=== PATIENT | female | born 1995 | race Caucasian/White ===

== ENCOUNTER → 2016-06-24 | Outpatient (CLI) | payer OTHER ==
[~2016-06-24] MED LIST: METHADONE PO; MTHL PO; PRENTAB26 PO; ZFR4 PO
[2016-06-24 16:07] LABS: URINE APPEARANCE CLEAR (CLEAR); URINE BILIRUBIN NEG (NEG); URINE COLOR YELLOW; URINE EPITHELIAL CELL AUTO >30 /lpf (0-5); URINE NITRITE NEG (NEG); URINE PH 7.5 (4.5-7.5); URINE SPECIFIC GRAVITY 1.011 (1.000-1.030); UROBILINOGEN NEG (NEG)
[2016-06-24 16:09] LABS: MANUAL MICROSCOPIC REQUIRED? NO; REVIEW REQ? NO
[2016-06-24 17:01] LABS: GTGD 50 Grams
== END | disposition home or self-care (01) ==
LOC: C.LAB1850 14:04
PROVIDERS: ATTEND Obstetrics & Gynecology
DX: Z34.83 Encounter for supervision of other normal pregnancy, third trimester (principal)

== ENCOUNTER 2016-08-24 21:01 | Outpatient (CLI) | payer OTHER ==
[~2016-08-24] VITALS: Ht 167.6 cm; Wt 76.2 kg
[~2016-08-24 21:01] MED LIST changes: -MTHL PO; +ONDANSETRON 4 MG TAB PO SCH; -PRENTAB26 PO; -ZFR4 PO
[2016-08-24 21:38] LABS: BASO % 0.1 %; BASO ABS # 0.01 K/uL (0-0.2); EOS % 0.2 %; HEMATOCRIT 35.3 % (37-47); IG% 0.1 %; LYMPH ABS # 1.13 K/uL (1.2-3.4); MEAN CELL VOLUME 83.1 fL (80-100); MEAN CORPUSCULAR HEMOGLOBIN 27.8 pg (25-34); MEAN PLATELET VOLUME 10.5 fL (7.4-10.4); MONO % 7.3 %; NEUT % 78.3 %; PLATELET COUNT 162 K/uL (130-400); RED BLOOD COUNT 4.25 M/uL (4.2-5.4); WHITE BLOOD COUNT 8.07 K/uL (4.8-10.8)
[2016-08-24 21:41] LABS: COMPLETE YES; MEAN CORPUSCULAR HGB CONC 33.4 g/dl (32-36)
[2016-08-24] MEDS ORDERED: ONDANSETRON 4 MG TAB PO PRN ×2 (21:45→22:45)
[2016-08-24] MEDS ORDERED: ZFR4 PO ×2 (21:47)
[2016-08-24 21:54] LABS: URINE APPEARANCE CLEAR (CLEAR); URINE BILIRUBIN NEG (NEG); URINE COLOR YELLOW; URINE NITRITE NEG (NEG); URINE SPECIFIC GRAVITY 1.005 (1.000-1.030); UROBILINOGEN NEG (NEG); ZZUR CULT IF INDIC CLEAN CATCH NO
[2016-08-24 21:57] LABS: MANUAL MICROSCOPIC REQUIRED? NO; REVIEW REQ? YES
[2016-08-24 22:02] LABS: URINE EPITHELIAL CELL AUTO >30 /lpf (0-5)
[2016-08-24 22:05] LABS: ALB/GLOB RATIO 0.8 (0.9-2); ALKALINE PHOSPHATASE 140 U/L (45-117); ALT/SGPT 18 U/L (12-78); AST/SGOT 17 U/L (15-37); BLOOD UREA NITROGEN 7 mg/dl (7-18); BUN/CREATININE RATIO 11.3 (10-20); CARBON DIOXIDE 23 mmol/L (21-32); CHLORIDE 107 mmol/L (98-107); CREATININE 0.61 mg/dl (0.60-1.20); GLUCOSE 75 mg/dl (70-99); POTASSIUM 3.6 mmol/L (3.5-5.1); SODIUM 140 mmol/L (136-145)
[2016-08-24 22:06] VITALS: Ht 167.6 cm; Wt 76.2 kg
[2016-08-24 22:34] LABS: CALCIUM 8.5 mg/dl (8.5-10.1)
[2016-08-24 22:34] LABS: BENZODIAZEPINE, URINE NEG (NEG); COCAINE,URINE NEG (NEG); PHENCYCLIDINE, URINE NEG (NEG)
--- NOTE | 2016-08-24 22:42 | Discharge Instructions ---
Discharge Instructions Date of Service August 24, 2016. Admission Reason for Admission: Nausea, Vomiting Discharge Discharge Diagnosis / Problem: same Discharge Goals Goal(s): Continuing OB care Activity Recommendations Activity Limitations: per Instructions/Follow-up section . Instructions / Follow-Up Instructions / Follow-Up SPECIAL CARE INSTRUCTIONS: Call Doctor if: * Regular contractions every 5 minutes or greater than 12 contractions in one hour. * Bleeding * Water breaks or is leaking * Decreased movement * Fever >100.4 degrees F * Pain not relieved by routine measures or pain medication ordered. FOLLOW UP VISIT: Appointment in the office tomorrow. Current Hospital Diet Patient's current hospital diet: Clear Liquid Diet Discharge Diet Recommended Diet: Regular OB Diet Pending Studies Studies pending at discharge: no Medical Emergencies . Who to Call and When: Medical Emergencies: If at any time you feel your situation is an emergency, please call 911 immediately. . Non-Emergent Contact Non-Emergency issues call your: Primary Care Provider, Industrial Real Estate Agent . . "Provider Documentation" section prepared by Sana Burciaga. . VTE Core Measure Inpt VTE Proph given/why not?: Treatment not indicated
[2016-08-28 05:48] LABS: METHADONE METABOLITE 548 NG/ML (CUTOFF=100); METHADONE VERIFIC 256 NG/ML (CUTOFF=100)
== END 2016-08-24 23:08 | disposition home or self-care (01) ==
LOC: C.LD 21:01 → C.OPB 21:01
PROVIDERS: ATTEND Obstetrics & Gynecology
DX: O21.9 Vomiting of pregnancy, unspecified (principal); Z3A.37 37 weeks gestation of pregnancy

== ENCOUNTER 2016-08-26 19:40 | Outpatient (CLI) | payer OTHER ==
[~2016-08-26] VITALS: Ht 167.6 cm; Wt 75.9 kg
[~2016-08-26 19:40] MED LIST changes: -ONDANSETRON 4 MG TAB PO SCH; +ZFR4 PO
[2016-08-26 20:12] VITALS: Ht 167.6 cm; Wt 75.9 kg
[2016-08-26] MEDS ORDERED: PRENTAB26 PO (20:16)
== END 2016-08-26 20:35 | disposition home or self-care (01) ==
LOC: C.OPB 19:40 → C.LD 19:40 → C.OPB 20:35
PROVIDERS: ATTEND Obstetrics & Gynecology
DX: O36.8130 Decreased fetal movements, third trimester, not applicable or unspecified (principal); Z3A.37 37 weeks gestation of pregnancy

== ENCOUNTER 2016-09-05 10:48 | Inpatient (IN) | payer OTHER ==
[~2016-09-05] VITALS: Ht 165.1 cm; Wt 78.0 kg
[~2016-09-05 10:48] MED LIST changes: +PRENTAB26 PO; -ZFR4 PO
[2016-09-05 11:40] VITALS: BMI 28.6
[2016-09-05 12:27] LABS: BENZODIAZEPINE, URINE NEG (NEG); COCAINE,URINE NEG (NEG); PHENCYCLIDINE, URINE NEG (NEG)
[2016-09-05] MEDS ORDERED: LACTATED RINGER'S 1000ML 1,000 ML IV PRN (13:43)
[2016-09-05] MEDS ORDERED: LACTATED RINGER'S 1000ML 1,000 ML IV SCH ×2 (13:43→20:36)
[2016-09-05] MEDS ORDERED: IV FLUIDS COMPLETED PRN (14:00)
[2016-09-05 14:12] LABS: HEMATOCRIT 37.1 % (37-47); MEAN CELL VOLUME 82.3 fL (80-100); MEAN CORPUSCULAR HEMOGLOBIN 27.5 pg (25-34); MEAN CORPUSCULAR HGB CONC 33.4 g/dl (32-36); MEAN PLATELET VOLUME 10.4 fL (7.4-10.4); PLATELET COUNT 172 K/uL (130-400); RED BLOOD COUNT 4.51 M/uL (4.2-5.4); WHITE BLOOD COUNT 10.25 K/uL (4.8-10.8)
[2016-09-05 14:30] VITALS: Ht 165.1 cm; Wt 78.0 kg
[2016-09-05] MEDS ORDERED: FENTANYL 2MCG/ML ROPIV 1.25MG/ML 100ML BAG EPI ONE (14:52)
[2016-09-05] MEDS ORDERED: BUPIVACAINE 0.25% 30 ML VIAL ONE (14:52)
[2016-09-05] MEDS ORDERED: EpHEDrine SULFATE INJ 50 MG/ML AMP ONE (14:52)
[2016-09-05] MEDS ORDERED: FENTANYL CITRATE INJ 50 MCG/1 ML 2 ML VIAL ONE (14:52)
[2016-09-05] MEDS ORDERED: LACTATED RINGER'S 1000ML 500 ML IV PRN (16:09)
[2016-09-05] MEDS ORDERED: NALOXONE HCL INJ 1 MG in SODIUM CHLORIDE 0.9% 1000ML 1,000 ML IV PRN (16:09)
[2016-09-05] MEDS ORDERED: FENTANYL 2MCG/ML ROPIV 1.25MG/ML 100ML BAG EPI PRN (16:15)
[2016-09-05] MEDS ORDERED: NALOXONE HCL INJ 0.4 MG/1 ML VIAL/CARP IV PRN (16:15)
[2016-09-05] MEDS ORDERED: ONDANSETRON INJ 2 MG/ML 2 ML VIAL IV PRN (16:15)
[2016-09-05] MEDS ORDERED: DiphenhydrAMINE HCL 50 MG/ML VIAL IV PRN (16:15)
[2016-09-05] MEDS ORDERED: NALBUPHINE HCL INJ 10 MG/ML AMP IV PRN (16:15)
[2016-09-05] MEDS ORDERED: EpHEDrine SULFATE INJ 50 MG/ML AMP IV PRN (16:15)
[2016-09-05] MEDS ORDERED: OXYTOCIN 30 UNITS/500ML NSS IV ONE (20:31)
[2016-09-05] MEDS ORDERED: DIPHTHERIA/TETANUS/PERTUSSIS 0.5 ML SYR/VIAL IM. ONE (20:45)
[2016-09-05] MEDS ORDERED: LANOLIN OINT EXT PRN ×2 (20:45)
[2016-09-05] MEDS ORDERED: OXYTOCIN 30 UNITS/500ML NSS IV PRN (20:45)
[2016-09-05] MEDS ORDERED: SUPERCREAM 0.870 % 15GM JAR EXT PRN (20:45)
[2016-09-05] MEDS ORDERED: BENZOCAINE 20% AER SPR 82.5 GM CAN EXT PRN (20:45)
[2016-09-05] MEDS ORDERED: HYDROCORTISONE ACETATE 25 MG SUPP PR PRN (20:45)
[2016-09-05] MEDS ORDERED: ACETAMINOPHEN 325 MG TAB PO PRN (20:45)
[2016-09-05] MEDS ORDERED: ACETAMINOPHEN/CODEINE 300/30MG TAB PO PRN ×2 (20:45)
--- NOTE | 2016-09-05 21:11 | Anesthesia Procedure Note ---
Anesthesia Epidural Removal Nt Date & Time September 05, 2016 at 21:11 Vital Signs Pain Intensity: 0.0 Notes Mental Status: alert / awake / arousable, participated in evaluation Nausea / Vomiting: adequately controlled Pain: adequately controlled Airway Patency, RR, SpO2: stable & adequate BP & HR: stable & adequate Hydration State: stable & adequate Neuraxial Anesthesia: was administered Anesthetic Complications: no major complications apparent, pt satisfied with anesthetic care Epidural: removed without complications, with tip intact
--- NOTE | 2016-09-05 22:05 | DELIVERY SUMMARY ---
DATE OF OPERATION: 09/05/2016 VAGINAL DELIVERY NOTE PREOPERATIVE DIAGNOSES: 1. Joseph intrauterine at term. 2. Onset of labor. 3. Prior section. 4. Desires feedback. POSTOPERATIVE DIAGNOSIS: Same. PROCEDURE: Spontaneous vaginal after prior . SURGEON: Dr. Piña. SECURITIES VAULT SUPERVISOR: None. ESTIMATED BLOOD LOSS: 300 mL. FINDINGS: Placenta spontaneous and intact with a 3-vessel cord. No lacerations requiring repair. COMPLICATIONS: None. DISPOSITION: Stable in labor and delivery. DESCRIPTION OF THE PROCEDURE: Opal Cage is a 21-year-old who arrived in normal active labor. She was managed expectantly with the augmentation only of artificial rupture of membranes. She was provided with epidural for pain management. She did reach complete dilation with an urge to push and pushed very well. She delivered the head of her infant in the JAMIE position followed by both shoulders and the remainders of the infant's body with no difficulty. The male infant was placed on the maternal abdomen with the cord was doubly clamped and cut by the grandmother and aunt of the baby. The placenta delivered spontaneously and was noted to be intact with a 3-vessel cord. There were no lacerations of the cervix, vagina or perineum requiring repair. The patient's fundus was firm, well contracted and lochia was minimal and mother and were in stable condition following the delivery. I attest to the content of the Intraoperative Record and any orders documented therein. Any exceptio ns are noted below.
[2016-09-05 23:50] VITALS: BP 113/66; PULSE 51; TEMP 36.8
[2016-09-06] VITALS (7 sets, daily range): BP systolic 109–137; BP diastolic 63–86; PULSE 54–88; TEMP 36.4–36.6; O2SAT 99–100
[2016-09-06] MEDS: IBUPROFEN 600 MG TAB PO PRN ×4 (00:18→22:26)
[2016-09-06 06:36] LABS: HEMATOCRIT 29.8 % (37-47)
--- NOTE | 2016-09-06 06:44 | Progress Note ---
Subjective September 06, 2016. Subjective conversation w/ patient, physical exam, lab review Ambulation: ambulating normally Voiding: no voiding problems Passing Gas: Yes Diet Tolerance: Regular Diet Lochia: Moderate Feeding Type: Bottle Feeding Pain: improves with med Comment: Patient was seen at the bedside. No acute event overnight. Review of Systems Constitutional: No fever Respiratory: No cough, No shortness of breath Cardiac: No chest pain Breast: No breast lump Abdomen: No nausea, No pain, No vomiting Female : No dysuria Denies headache Objective Vital Signs Date Time Temp Pulse Resp B/P Pulse Ox O2 Delivery O2 Flow Rate FiO2 09/06/16 05:00 36.6 84 20 119/63 Room Air 09/05/16 23:50 36.8 51 20 113/66 Room Air 09/05/16 23:50 Room Air Physical Exam General Appearance: WELL-APPEARING, WD/WN, NO APPARENT DISTRESS Respiratory/Chest: chest non-tender, lungs clear, normal breath sounds, no respiratory distress Cardiovascular: regular rate, rhythm Abdomen: normal bowel sounds, non tender, soft Fundus: Firm, Relation to Umbilicus (about 1-2cm below U) Extremities: non-tender, no pedal edema, no calf tenderness Laboratory Results Last 24 Hours Test 09/05/16 11:09 09/05/16 11:36 09/05/16 14:05 09/06/16 06:21 Urine Opiates Screen NEG Urine Methadone, Qualitative POS Urine Barbiturates NEG Urine Phencyclidine (PCP) Level NEG Ur Amphetamine/Methamphetamine NEG MDMA (Ecstasy) Screen NEG Urine Benzodiazepines Screen NEG Urine Cocaine Metabolite NEG Urine Marijuana (THC) NEG Amniotic Fluid Protein NEG White Blood Count 10.25 K/uL Red Blood Count 4.51 M/uL Hemoglobin 12.4 g/dL 10.0 g/dL Hematocrit 37.1 % 29.8 % Mean Corpuscular Volume 82.3 fL Mean Corpuscular Hemoglobin 27.5 pg Mean Corpuscular Hemoglobin Concent 33.4 g/dl RDW Standard Deviation 39.1 fL RDW Coefficient of Variation 12.9 % Platelet Count 172 K/uL Mean Platelet Volume 10.4 fL Medications Current Inpatient Medications Medications (Trade) Dose Ordered Sig/Lalitha Route Start Time Stop Time Status Last Admin Dose Admin Lactated Ringer's 1,000 ml @ 125 mls/hr Q8H IV 09/05/16 13:43 09/07/16 13:42 Lactated Ringer's (Lr 1000ml) 1,000 ml @ 999 mls/hr Q1H1M PRN IV 09/05/16 13:43 10/05/16 13:42 09/05/16 15:01 999 MLS/HR Miscellaneous (Iv Fluids Completed) 1 ea PRN PRN N/A 09/05/16 14:00 09/05/17 13:59 Fentanyl/ Ropivacaine (Fentanyl 2MCG/ Ml/Ropivacaine 1.25MG/ML) 100 ml PRN PRN EPI 09/05/16 16:15 09/06/16 16:14 09/05/16 18:57 100 ML Naloxone HCl 0.1 mg 0.1 mg UD PRN IV 09/05/16 16:15 09/06/16 16:14 Lactated Ringer's (Lr 1000ml) 500 ml @ 999 mls/hr Q31M PRN IV 09/05/16 16:09 09/06/16 16:08 Ephedrine Sulfate (EpHEDrine SULFATE INJ) 10 mg Q5M PRN IV 09/05/16 16:15 09/06/16 16:14 Diphenhydramine HCl (Benadryl Inj) 25 mg Q6H PRN IV 09/05/16 16:15 09/06/16 16:14 Nalbuphine HCl 5 mg 5 mg Q10M PRN IV 09/05/16 16:15 09/06/16 16:14 Naloxone HCl/ Sodium Chloride (Narcan Inj/Nss 1000ml) 1,002.5 ml @ 50 mls/hr Q20H3M PRN IV 09/05/16 16:09 09/06/16 16:08 Ondansetron HCl 4 mg 4 mg Q6H PRN IV 09/05/16 16:15 09/06/16 16:14 Lactated Ringer's (Lr 1000ml) 1,000 ml @ 125 mls/hr Q8H IV 09/05/16 20:36 10/05/16 20:35 Oxytocin (Pitocin IV) 30 units UD PRN IV 09/05/16 20:45 10/05/16 20:44 Benzocaine (Dermoplast Aero Spr) 1 appln PRN PRN EXT 09/05/16 20:45 10/05/16 20:44 Cocaine HCl (Supercream 0.870% Cr) BID PRN EXT 09/05/16 20:45 09/19/16 20:44 Hydrocortisone Acetate (Anusol Hc Supp) 25 mg BID PRN [place] 09/05/16 20:45 10/05/16 20:44 Lanolin (Lanolin Oint) PRN PRN EXT 09/05/16 20:45 10/05/16 20:44 Prenat Multivit/ [place]/Iron/Folic Ac ( Vitamin Tab) 1 tab DAILY PO 09/06/16 08:00 10/06/16 07:59 Ibuprofen (Motrin Tab) 600 mg Q4H PRN PO 09/05/16 20:45 10/05/16 20:44 09/06/16 00:18 600 MG Acetaminophen (Tylenol Tab) 650 mg Q6H PRN PO 09/05/16 20:45 10/05/16 20:44 Acetaminophen/ Codeine Phosphate (Tylenol w/ Codeine #3 Tab) 1 tab Q4H PRN PO 09/05/16 20:45 10/05/16 20:44 Acetaminophen/ Codeine Phosphate (Tylenol w/ Codeine #3 Tab) 2 tab Q4H PRN PO 09/05/16 20:45 10/05/16 20:44 Docusate Sodium (coLACE CAP) 100 mg BID PO 09/06/16 08:00 10/06/16 07:59 Assessment and Plan Post- Day#: 1 Continue Routine Care: A/P: This is a 21 y/o female, , s/p normal vaginal delivery. She is ambulating and clinically stable. Plan: - Vitals signs are reviewed and WNL (Tmax 36.8 ) - Last Hgb is 10 - Blood type B+, GBS neg - Routine care - Encourage ambulation, monitor and control pain with medication as needed , continue with regular diet as tolerated and monitor lochia - Stool softeners and sitz bath recommended - Encourage breast feeding and educate about breast feeding Resident Physician Supervision Note: I interviewed and examined the patient. Discussed with Dr. Castellanos and agree with findings and plan as documented in the note. Any exceptions or clarifications are listed here: [None] Documented By: Kendra Piña
[2016-09-06] MEDS: PRENATAL VITAMIN TAB PO SCH (08:36)
[2016-09-06] MEDS: DOCUSATE SODIUM 100 MG CAP PO SCH ×2 (08:37→19:59)
[2016-09-06] MEDS ORDERED: MTHL PO (08:38)
[2016-09-06] MEDS: METHADONE ORAL SOLN 2 MG/1ML PO SCH (09:23)
[2016-09-07] MEDS: IBUPROFEN 600 MG TAB PO PRN ×2 (05:56→16:00)
--- NOTE | 2016-09-07 07:05 | Progress Note ---
Subjective September 07, 2016. Subjective conversation w/ patient, physical exam, lab review Ambulation: ambulating normally Voiding: no voiding problems Passing Gas: Yes Diet Tolerance: Regular Diet Lochia: Moderate Feeding Type: Bottle Feeding Pain: denies pain Comment: Patient was seen at the bedside. No acute event overnight. Review of Systems Constitutional: No fever Respiratory: No cough, No shortness of breath Cardiac: No chest pain Breast: No breast lump Abdomen: No nausea, No pain, No vomiting Female : No dysuria, No urinary frequency Denies headache Objective Vital Signs Date Time Temp Pulse Resp B/P Pulse Ox O2 Delivery O2 Flow Rate FiO2 09/06/16 23:15 99 Room Air 09/06/16 23:15 36.4 60 18 117/69 99 Room Air 09/06/16 19:30 36.6 77 18 137/86 Room Air 09/06/16 15:55 Room Air 09/06/16 15:55 36.6 54 16 120/73 Room Air 09/06/16 11:55 36.5 74 18 122/77 100 Room Air 09/06/16 09:15 99 Room Air 09/06/16 09:02 36.6 88 17 109/68 99 Room Air 09/06/16 08:15 Room Air Physical Exam General Appearance: WELL-APPEARING, WD/WN, NO APPARENT DISTRESS Respiratory/Chest: chest non-tender, lungs clear, normal breath sounds, no respiratory distress Cardiovascular: regular rate, rhythm Abdomen: normal bowel sounds, non tender, soft Fundus: Firm, Non-Tender, Relation to Umbilicus (about 3cm below U) Extremities: non-tender, no pedal edema, no calf tenderness Medications Current Inpatient Medications Medications (Trade) Dose Ordered Sig/Lalitha Route Start Time Stop Time Status Last Admin Dose Admin Lactated Ringer's 1,000 ml @ 125 mls/hr Q8H IV 09/05/16 13:43 09/07/16 13:42 Lactated Ringer's (Lr 1000ml) 1,000 ml @ 999 mls/hr Q1H1M PRN IV 09/05/16 13:43 10/05/16 13:42 09/05/16 15:01 999 MLS/HR Miscellaneous 1 ea 1 ea PRN PRN N/A 09/05/16 14:00 09/05/17 13:59 Lactated Ringer's (Lr 1000ml) 1,000 ml @ 125 mls/hr Q8H IV 09/05/16 20:36 10/05/16 20:35 Oxytocin (Pitocin IV) 30 units UD PRN IV 09/05/16 20:45 10/05/16 20:44 Benzocaine (Dermoplast Aero Spr) 1 appln PRN PRN EXT 09/05/16 20:45 10/05/16 20:44 Cocaine HCl (Supercream 0.870% Cr) BID PRN EXT 09/05/16 20:45 09/19/16 20:44 Hydrocortisone Acetate (Anusol Hc Supp) 25 mg BID PRN [place] 09/05/16 20:45 10/05/16 20:44 Lanolin (Lanolin Oint) PRN PRN EXT 09/05/16 20:45 10/05/16 20:44 Prenat Multivit/ [place]/Iron/Folic Ac ( Vitamin Tab) 1 tab DAILY PO 09/06/16 08:00 10/06/16 07:59 09/06/16 08:36 1 TAB Ibuprofen (Motrin Tab) 600 mg Q4H PRN PO 09/05/16 20:45 10/05/16 20:44 09/07/16 05:56 600 MG Acetaminophen (Tylenol Tab) 650 mg Q6H PRN PO 09/05/16 20:45 10/05/16 20:44 Acetaminophen/ Codeine Phosphate (Tylenol w/ Codeine #3 Tab) 1 tab Q4H PRN PO 09/05/16 20:45 10/05/16 20:44 Acetaminophen/ Codeine Phosphate (Tylenol w/ Codeine #3 Tab) 2 tab Q4H PRN PO 09/05/16 20:45 10/05/16 20:44 Docusate Sodium (coLACE CAP) 100 mg BID PO 09/06/16 08:00 10/06/16 07:59 09/06/16 19:59 100 MG Methadone HCl (Methadone HCl) 23 mg DAILY PO 09/06/16 09:00 09/20/16 08:59 09/06/16 09:23 23 MG Assessment and Plan Post- Day#: 2 Continue Routine Care: A/P: This is a 21 y/o female, , s/p normal vaginal delivery. She is ambulating and clinically stable to discharge. - Vital signs are reviewed and WNL (Tmax 36.6 ) - Last Hgb 10.0 - Blood type B+, GBS neg - No signs of depression. - Routine care - Discussed resting, feeding, pain control, mastitis, control, follow up in 6 weeks and reasons to call sooner, if necessary. - Continue with pain medication as needed, and continue vitamins. - Encourage breast feeding and educate about breast feeding - Patient understands and keen for home. - Plan to discharge home
--- NOTE | 2016-09-07 07:06 | Discharge Instructions ---
Discharge Instructions Date of Service September 06, 2016. Admission Reason for Admission: Check Labor Discharge Discharge Diagnosis / Problem: s/p vaginal delivery Discharge Goals Goal(s): Routine recovery after delivery Medications Continue Dispensed Medications: supercream, dermaplast, tucks, lansinoh Activity Recommendations Activity Limitations: as noted below . Instructions / Follow-Up Instructions / Follow-Up ACTIVITY RECOMMENDATIONS: * Gradual return to full activity over the next 2-3 weeks. * No lifting - nothing heavier than baby over the next 2-3 weeks. * Do not engage in vigorous exercise, sexual activity or sports until cleared by your physician. * Do not drive or operate any motorized equipment until cleared by your physician. * You may shower/bathe daily. MEDICATIONS: For discomfort or pain, you may use Acetaminophen (Tylenol), Ibuprofen (Advil), or Naproxen (Aleve) following the package directions. For constipation you may use Colace following the package directions. BREAST CARE: If you are not breast feeding: * Wear a supportive bra 24 hours a day for one to two weeks. * Avoid stimulating your breasts and nipples as much as possible during the first few weeks after delivery. * When taking a shower, have the warm water hit your back, not breasts. * When your breasts feel full, apply ice packs. Usually three to four times a day helps ease the discomfort. * Take a mild pain medication (Tylenol / Motrin) when you are uncomfortable. If breast feeding: * Use breast milk to lubricate nipples. Lansinoh cream may be used for sore nipples. You do not need to remove cream prior to breast feeding. If using a different brand of cream, check the label for directions regarding removal of cream prior to nursing. * Wear a supportive bra. * If having problems with breasts or breast feeding, call a wellness consultant or your health care provider. EPISIOTOMY CARE: After delivery, if you have an episiotomy (stitches), the following steps will ease discomfort and aid healing. * For the first 24 hours after delivery, place ice packs next to your episiotomy to help reduce swelling. * After the first 24 hour-period, sitz baths, either portable or in the tub, are suggested. A shower with a shower arm sprayed over the episiotomy may be comforting. * Lula care should be done after each voiding and bowel movement. Squirt warm water from a plastic bottle over the perineum (region of the body between the anus and urinary opening) and pat dry. * Use Dermoplast to ease discomfort. Shake container. [place] directly over the episiotomy. Place a Tucks on a clean sanitary pad next to your episiotomy. SPECIAL CARE INSTRUCTIONS: When you are discharged from the hospital, it is important for you to follow the instructions listed below: * During the first week at home, you should be able to care for yourself and your baby. In addition, the usual light household activities are encouraged. * Limit your activities to the way you feel. Do not try to clean the house or move furniture. Be sensible. * If you actively engage in sports and have done so up until the time of your delivery, you may resume these activities as soon as you feel able. This may take up to one month or even longer. Use good judgment. * Continue to take your vitamins for at least six weeks after the of your baby. * Your diet need not be limited unless you were on a special diet before your delivery. Breast-feeding mothers need around 2500 calories per day and at least 64-80 ounces of fluid per day (8 to 10 glasses). * You should eat foods from the four major food groups. Crash diets or fad diets are to be avoided. Eating lean meats, fresh fruits and vegetables, low-fat dairy products, high fiber foods and a regular exercise program, will help you get back to your pre- weight without putting your health at risk. * Constipation is sometimes a problem after delivery. Take a mild laxative as needed. If breast feeding, Milk of Magnesia is acceptable to use. You may use a suppository or Fleets enema if no episiotomy. * A daily shower or tub bath is suggested. Be sure to thoroughly and gently dry the perineum. * A bloody vaginal discharge will usually continue until around four weeks post . A small amount of bleeding may continue for as long as six weeks. Vaginal discharge changes from the bright red bleeding after delivery to pink then brownish and finally yellowish-pink before becoming white and disappearing. * Bleeding may increase with activity. Your first period may come in 4-8 weeks. If you are breast feeding, your period may be delayed even longer. * [place] (sex) can begin whenever both you and your partner feel comfortable and do not have any form of genital infection. It is recommended that you wait at least six weeks for internal and external healing to occur. If you have questions, please talk to your health care practitioner. A condom should be used to prevent infection and . * Foreplay, gentle intercourse and lubrication is very important the first several times to prevent pain. A water-based lubricant such as K-Y jelly or Astroglide may be used. * If you have RH negative blood and your baby is RH positive, you will receive RHOGAM by injection prior to discharge. The nurse will give you a card to keep with you that has the date and place that you received RHOGAM after delivery. * During your care, you had a Rubella screen done to check for the presence of rubella antibodies in your blood. If your test was negative, you will receive a Rubella vaccine prior to discharge. This vaccine may cause a fever, soreness at the injection site and flu-like symptoms. If these symptoms persist, notify your health care practitioner. is not advised for one month after a Rubella vaccine. * Verbalizes understanding of car seat law as reviewed with patient nursing. * Car Seat hand-out given and reviewed with patient by nursing. * Shaken baby information reviewed with patient by nursing. Call you doctor if: * Heavy bleeding (saturating several pads an hour) or passing clots the size of your fist. * A fever >101 degrees F (38.3 degrees C) on two occasions four hours apart and /or chills. * Unusual pain in the pelvic or vaginal areas. * "Baby Blues" lasting longer than two weeks. If you have any questions or concerns, call your health care practitioner at . FOLLOW UP VISIT: * Please call the office at to schedule a 6 week examination. It is important you keep this appointment. It is important for you to make arrangements for either yearly or twice yearly check-ups thereafter. Current Hospital Diet Patient's current hospital diet: Regular OB Diet Discharge Diet Recommended Diet: Regular Diet Pending Studies Studies pending at discharge: no Medical Emergencies . Who to Call and When: Medical Emergencies: If at any time you feel your situation is an emergency, please call [phone] immediately. . Non-Emergent Contact Non-Emergency issues call your: Life Science Research Assistant Call Non-Emergent contact if: you have a fever, temperature is above 101 . . "Provider Documentation" section prepared by Liat Castellanos. . VTE Core Measure Inpt VTE Proph given/why not?: Treatment not indicated
[2016-09-07 08:00] VITALS: BP 121/73; PULSE 58; TEMP 36.5; O2SAT 100
[2016-09-07] MEDS: PRENATAL VITAMIN TAB PO SCH (08:03)
[2016-09-07] MEDS: DOCUSATE SODIUM 100 MG CAP PO SCH (08:03)
[2016-09-07] MEDS: METHADONE ORAL SOLN 2 MG/1ML PO SCH (08:34)
[2016-09-07] MEDS ORDERED: MEASLES, MUMPS & RUBELLA VIRUS VIAL SQ. ONE (09:15)
[2016-09-07 15:40] VITALS: BP 125/79; PULSE 65; TEMP 36.7; O2SAT 97
[2016-09-07 18:00] VITALS: BP_DIAS 79; PULSE 65; TEMP 36.7
[2016-09-08 10:00] LABS: METHADONE METABOLITE 923 NG/ML (CUTOFF=100); METHADONE VERIFIC 420 NG/ML (CUTOFF=100)
== END 2016-09-07 18:10 | disposition home or self-care (01) | DRG 775 ==
LOC: C.OPB 10:48 → C.LD 10:48 → C.OPB 13:44 → C.LD 13:44 → C.OBG 23:08
PROVIDERS: ADMIT Obstetrics & Gynecology; ATTEND Obstetrics & Gynecology
PROC: 10E0XZZ Delivery of Products of Conception, External Approach (ICD-10-PCS; principal; 2016-09-05)
DX: O34.219 Maternal care for unspecified type scar from previous cesarean delivery (principal); O99.324 Drug use complicating childbirth; Z37.0 Single live birth; N85.8 Other specified noninflammatory disorders of uterus; O99.334 Smoking (tobacco) complicating childbirth; F17.210 Nicotine dependence, cigarettes, uncomplicated; F11.21 Opioid dependence, in remission; Z3A.39 39 weeks gestation of pregnancy; Z23 Encounter for immunization

== ENCOUNTER → 2017-07-08 | Outpatient (CLI) | payer OTHER ==
[~2017-07-08] MED LIST changes: -METHADONE PO; +MTHL PO
== END | disposition home or self-care (01) ==
LOC: C.LAB 02:04
DX: Z02.83 Encounter for blood-alcohol and blood-drug test (principal)